=== PATIENT | female | born 1975 | race Caucasian/White ===

== ENCOUNTER 2021-03-07 11:02 | Outpatient (REF) | payer OTHER, SELFPAY ==
[2021-03-07 14:14] LABS: Basophils Percent Auto 0.4 % (0-2); Eosinophils Absolute Auto 0.1 X10*3/uL (0.0-0.4); Eosinophils Percent Auto 1.1 % (0-4); Hematocrit 38.8 % (37-47); Hemoglobin 12.7 g/dl (12.0-16.0); Imm Gran Abs Auto 0.02 X10*3/uL (0.00-0.03); Imm Gran Pct Auto 0.4 % (0.0-0.4); Lymphocytes Absolute Auto 0.7 X10*3/uL (1.2-4.9); Lymphocytes Percent Auto 13.1 % (20-40); MANUAL DIFF FLAG SCAN; Mean Corpuscular HGB Conc 32.7 g/dl (31.0-35.0); Mean Corpuscular Hemoglobin 32.9 pg (27.0-33.0); Mean Corpuscular Volume 100.5 fL (80-98); Monocytes Absolute Auto 0.9 X10*3/uL (0.1-1.2); Monocytes Percent Auto 17.5 % (2-11); Neutrophils Absolute Auto 3.5 X10*3/uL (2.0-8.3); Neutrophils Percent Auto 67.5 % (45-73); Platelet Count 269 X10*3/uL (160-400); Red Blood Count 3.86 X10*6/uL (4.20-5.50); Red Cell Distribution Width 12.3 % (11.0-16.0); SCAN SMEAR FLAG 1; White Blood Count 5.3 X10*3/uL (4.8-10.8)
[2021-03-07 14:32] LABS: Troponin-I High Sensitivity 10.4 ng/L (<3.5-17.0)
[2021-03-07 14:44] LABS: Alanine Aminotransferase 19 U/L (0-31); Albumin Level 4.5 g/dL (3.5-5.0); Alkaline Phosphatase 61 U/L (39-117); Anion Gap 17 (12-20); Aspartate Amino Transferase 23 U/L (5-31); Bilirubin Total 0.4 mg/dL (0.0-1.0); Blood Urea Nitrogen 8 mg/dL (9-16); C Reactive Protein 3.67 mg/dL (< or = 0.50); Calcium 9.9 mg/dL (8.4-10.2); Carbon Dioxide 25 mmol/L (22-29); Chloride 101 mmol/L (96-108); Cholesterol 205 mg/dL; D Dimer 392 NG/ML; Estimated Glomerular Filt Rate > 60; Glucose Fasting 100 mg/dL (60-99); HDL Cholesterol 70 mg/dL; LDL Cholesterol Calculated 109 mg/dl; Potassium 4.8 mmol/L (3.3-5.1); Sodium 138 mmol/L (135-145); Total Protein 7.7 g/dL (6.5-8.0); Triglycerides 132 mg/dL
[2021-03-07 14:48] LABS: SLIDE REVIEW VERIFIED
[2021-03-07 14:49] LABS: Thyroid Stimulating Hormone 3.63 uIU/mL (0.32-4.0); Vitamin B12 234 pg/mL (200-900)
== END 2021-03-07 11:03 | disposition home or self-care (01) ==
LOC: HO.10HDL 11:02
PROVIDERS: Visit Provider Internal Medicine
DX: Z00.00 Encounter for general adult medical examination without abnormal findings (principal); K62.5 Hemorrhage of anus and rectum
CPT/HCPCS: 36415; 80053; 80061; 82550; 82607; 84443; 84484; 85025; 85379; 86140

== ENCOUNTER 2021-03-07 16:10 | Emergency (ER) | payer OTHER, SELFPAY ==
--- NOTE | ~2021-03-07 | CT_ITS ---
EXAMINATION: CT ANGIOGRAM OF THE CHEST WITH AND WITHOUT CONTRAST (CT PULMONARY ANGIOGRAM FOR PE) CLINICAL INFORMATION: Reason for Exam Chest tightness with elevated D-dimer COMPARISON: None TECHNIQUE: Prior to contrast administration, noncontrast localization images were obtained. Subsequently, multidetector volumetric imaging was performed from the thoracic inlet to below the diaphragms following the administration of 80 mL Omnipaque 350 intravenous contrast. No contrast reaction reported Sagittal, coronal, and MIP oblique sagittal reformatted images were obtained on the CT workstation, uploaded to PACS, and reviewed. This CT examination was performed using dose optimization techniques as appropriate, variously including the following: *Automated exposure control *Adjustment of mA and/or kV according to patient size (this includes techniques or standardized protocols for targeted exams where dose is matched to indication/reason for exam; i.e. extremities or head) *Use of iterative reconstruction technique Total exam dose-length product 236 mGy-cm FINDINGS: QUALITY OF STUDY/CONTRAST BOLUS: Satisfactory. PULMONARY ARTERIES: No central or segmental pulmonary emboli. THORACIC AORTA: No aneurysm or dissection. LUNG: Atelectasis or scarring is present in the right lower lobe and to a lesser extent the left lower lobe. No focal consolidation, nodules or masses. PLEURA: No pleural effusion or pneumothorax. MEDIASTINUM: Normal heart size. No pericardial effusion. No hilar or mediastinal lymphadenopathy. No evidence of septal bowing or right heart strain. CHEST WALL/AXILLA: No axillary or internal mammary lymphadenopathy. OSSEOUS STRUCTURES: No acute or suspicious osseous abnormality. 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 No reflux of contrast into the hepatic veins to suggest elevated right heart pressures. CT/CT angio chest PE protocol IMPRESSION: No evidence of pulmonary emboli A cause for the patient's chest tightness has not been found VTE: negative
--- NOTE | ~2021-03-07 | US_ITS ---
EXAMINATION: US VENOUS ULTRASOUND WITH DOPPLER LOWER EXTREMITY, BILATERAL CLINICAL INFORMATION: Pain. COMPARISON: None TECHNIQUE: Ultrasound of the deep veins is performed from the hip to the calf with compression sonography and color and pulse Doppler assessment. Spectral analysis with color-flow imaging is performed. FINDINGS: RIGHT: There is normal venous compression and respiratory variation and augmented flow. The visualized common femoral vein, superficial femoral vein, profunda femoral vein, popliteal vein, and the trifurcation region shows no evidence of deep venous thrombosis. There is no significant popliteal fossa cyst. LEFT: There is normal venous compression and respiratory variation and augmented flow. The visualized common femoral vein, superficial femoral vein, profunda femoral vein, popliteal vein, and the trifurcation region shows no evidence of deep venous thrombosis. There is no significant popliteal fossa cyst. If the patient's symptoms persist, followup ultrasound in 5 days 7 days might be of value to exclude proximal propagation from a non-visualized calf vein. US/US venous duplex LE BI IMPRESSION: No DVT demonstrated in the bilateral lower extremity.
[2021-03-07 16:28] VITALS: BP 146/79; PULSE 90; RESP 20; TEMP 37.1; O2SAT 100; BMI 23.1
[2021-03-07 17:46] LABS: Urine Pregnancy NEGATIVE (NEGATIVE)
[2021-03-07 17:47] LABS: UPreg QC Valid YES
--- NOTE | 2021-03-07 20:45 | ED_ITS ---
HPI - Chest Pain General Chief Complaint: Recheck/Abnormal Lab/Rx Stated Complaint: abnormal labs Time Seen by Provider: 03/07/21 20:39 Source: patient Mode of arrival: ambulatory Limitations: no limitations History of Present Illness HPI narrative: Patient complaining of chest pain tightness for last 4 days also complaining of upper back pain. Patient received her mother in a COVID-19 vaccine 2nd shot on 02/24. Seen her PCP today who did a D-dimer which was slightly elevated and CRP is slightly elevated sent the patient here to rule out PE otherwise patient has no risk for PE not on any control pills nonsmoker no family history of hypercoagulable state patient pretty active otherwise PE. Patient denies any shortness of breath no cough no no fever no chills . complaint: chest heaviness Related Data Previous Rx's Medication Instructions Recorded ibuprofen 600 mg PO Q6H PRN #20 tab 03/07/21 Allergies Allergy/AdvReac Type Severity Reaction Status Date / Time No Known Allergies Allergy Verified 03/07/21 16:33 Review of Systems Review of Systems: Constitutional : No Weight loss, No Fever, No Chills ENT/Mouth : No sore throat, No Rhinorrhea Eyes: No Eye Pain, No Swelling Cardiovascular : + Chest Pain, no palpitations Respiratory : No Cough, No Sputum, no shortness of breath Gastrointestinal : no Nausea, No Vomiting, No Diarrhea, No abdominal Pain, no black stools Genitourinary : No Dysuria, No Urinary Frequency Musculoskeletal : No joint pain, No Myalgias, No Joint Swelling Skin : No Skin Lesions, No rash Neuro : No Weakness, No Numbness, No Dizziness, No Headache Psych : No Anxiety/Panic, No Depression Heme/Lymph: No Bruising, No Lymphadenopathy Endocrine : No Polyuria, No Polydipsia All other systems reviewed and are negative [facility] Past Medical History Medical History Acne Social History Social History Advance Directives: No Advance Directives Information Provided: Yes Physical Exam Vital Signs: Vital Signs: Last Vital Signs Temp 98.7 F 03/07/21 16:28 Pulse 89 03/07/21 21:05 Resp 20 03/07/21 21:05 BP 133/83 03/07/21 21:05 Pulse Ox 99 03/07/21 21:05 Body Mass Index 23.1 Appearance: Alert. Oriented X3. No acute distress. Eyes: PERRLA, No Nystagmus ENT: Pharynx normal. Oral Mucosa moist Neck: Normal inspection. Neck supple. Diffuse muscular tenderness upper back no spinal tenderness CVS: Normal heart rate and rhythm. Pulses normal. Respiratory: No respiratory distress. Equal air entry bilateral, no wheezing/rales/rhonchi no chest wall tenderness Abdomen: Soft and nontender. Bowel sounds are present, no mass palpable, no CVA tenderness Skin: Skin warm and dry. Normal skin color. Normal skin turgor. Extremities: No lower extremity edema. No calf tenderness Neuro: Oriented X 3. No motor deficit. No sensory deficit.No cerebellar signs , cranial nerves II-XII intact MDM - Chest Pain MDM Narrative Medical decision making narrative: Patient has atypical chest pain two sets of high sensitive troponin negative for any delta change, D-dimer was 392 CTA chest was done which is negative for PE venous Doppler for the legs done which was also negative for DVT Medical Records Data Attestation: I reviewed the patient's medical records. Lab Data Attestation: I reviewed the patient's lab results. Labs: Lab Results 03/07/21 03/07/21 Range/Units 17:33 21:12 Troponin I High Sens 4.6 D (<3.5-17.0) ng/L Urine Test NEGATIVE (NEGATIVE) ECG Data ECG #1: Attestation: I personally reviewed and interpreted this ECG as follows: Interpretation: Normal sinus rhythm heart rate 84 normal axis no acute ST T wave changes no acute ischemia Discharge Plan Discharge Clinical Impression: Chest pain Qualifiers: Chest pain type: chest pain on breathing Qualified Code(s): R07.1 - Chest pain on breathing Patient Disposition: Home, Self-Care Instructions: Chest Pain (ED) Additional Instructions: The chest pain is likely noncardiac not lung related likely muscular. Take ibuprofen 600 mg 1 tablet every 6 hours as needed for the pain Follow-up with your PCP for further evaluation if chest pain continues Prescriptions: New ibuprofen 600 mg tablet 600 mg PO Q6H PRN (Reason: pain) Qty: 20 RF: 0
--- NOTE | 2021-03-07 20:45 | ECG_ITS ---
Test Reason : SOB Blood Pressure : / mmHG Vent. Rate : 084 BPM Atrial Rate : 084 BPM P-R Int : 166 ms QRS Dur : 086 ms QT Int : 412 ms P-R-T Axes : 066 022 021 degrees QTc Int : 486 ms Normal sinus rhythm Nonspecific T wave abnormality Prolonged QT Abnormal ECG No previous ECGs available Referred By: Santiago Madrigal Electronically Signed By:GRACIELA DE DIOS MD
[2021-03-07 21:05] VITALS: BP 133/83; PULSE 89; RESP 20; O2SAT 99
[2021-03-07 21:59] LABS: Troponin-I High Sensitivity 4.6 ng/L (<3.5-17.0)
[2021-03-07] MEDS: iohexoL 350 MG/ML 100 ML INFUS..BTL IV (21:59)
[2021-03-07] MEDS: Ketorolac Tromethamine 30 MG/ML VIAL IVPUSH (23:38)
[2021-03-07 23:50] VITALS: BP 137/87; PULSE 93; RESP 16; O2SAT 98
== END 2021-03-07 23:53 | disposition home or self-care (01) ==
PROVIDERS: Emergency Provider Internal Medicine; PCP Internal Medicine
DX: R07.1 Chest pain on breathing (principal)
CPT/HCPCS: 36415; 71275; 81025; 84484; 93005; 93970; 96374; 99284; 99285; J1885; Q9967

== ENCOUNTER 2021-08-17 12:00 | Outpatient (REF) | payer OTHER, SELFPAY ==
[2021-08-17 13:36] LABS: MANUAL DIFF FLAG NO
[2021-08-17 13:43] LABS: Basophils Percent Auto 0.6 % (0-2); Eosinophils Percent Auto 0.6 % (0-4); Hematocrit 34.3 % (37-47); Hemoglobin 11.6 g/dl (12.0-16.0); Imm Gran Abs Auto 0.01 X10*3/uL (0.00-0.03); Imm Gran Pct Auto 0.2 % (0.0-0.4); Lymphocytes Absolute Auto 1.4 X10*3/uL (1.2-4.9); Lymphocytes Percent Auto 29.1 % (20-40); Mean Corpuscular HGB Conc 33.8 g/dl (31.0-35.0); Mean Corpuscular Hemoglobin 33.6 pg (27.0-33.0); Mean Corpuscular Volume 99.4 fL (80-98); Monocytes Absolute Auto 0.6 X10*3/uL (0.1-1.2); Monocytes Percent Auto 13.6 % (2-11); Neutrophils Absolute Auto 2.6 X10*3/uL (2.0-8.3); Neutrophils Percent Auto 55.9 % (45-73); Platelet Count 265 X10*3/uL (160-400); Red Blood Count 3.45 X10*6/uL (4.20-5.50); Red Cell Distribution Width 12.1 % (11.0-16.0); White Blood Count 4.7 X10*3/uL (4.8-10.8)
[2021-08-17 14:06] LABS: C Reactive Protein 0.11 mg/dL (< or = 0.50)
[2021-08-17 14:18] LABS: IDNOW Serial# 9DD0AD1C; Strep A Nucleic Acid Negative (Negative)
[2021-08-17 14:34] LABS: Free T4 (Free Thyroxine) 0.81 ng/dL (0.71-1.85); Thyroid Stimulating Hormone 1.22 uIU/mL (0.32-4.0)
[2021-08-17 15:02] LABS: Vitamin B12 368 pg/mL (200-900)
== END 2021-08-17 12:01 | disposition home or self-care (01) ==
LOC: HO.10HDL 12:00
PROVIDERS: Visit Provider Internal Medicine
DX: E53.8 Deficiency of other specified B group vitamins (principal); M54.9 Dorsalgia, unspecified; R94.6 Abnormal results of thyroid function studies; Z20.89 Contact with and (suspected) exposure to other communicable diseases
CPT/HCPCS: 36415; 82607; 84439; 84443; 85025; 86140; 87071; 87651

== ENCOUNTER 2025-01-08 06:38 | Day surgery (SDC) | payer OTHER, SELFPAY ==
[2025-01-06 13:52] VITALS: BMI 25.4
[2025-01-08 06:50] VITALS: BMI 23.8
[2025-01-08 06:59] VITALS: BP 140/83; PULSE 63; RESP 16; TEMP 36.1; O2SAT 100
[2025-01-08] MEDS: Lactated Ringers 1,000 ML 80 ML IVCONT (07:15)
--- NOTE | 2025-01-08 07:16 | P.CONAN_ITS ---
HPI - Anesthesia Eval Consult details Narrative: for colonoscopy [facility] Past Medical History Medical History (Updated 03/08/21 @ 00:01 by Valdemar Clemente) Acne Family History Family history of problems with anesthesia: No Surgical History Surgical History (Updated 01/08/25 @ 06:48 by Alexa Jean RN) History of facial surgery [place] teeth extracted History of Problems with Anesthesia: No Social History Social History Are you a primary mall plant caretaker to a significant other at home: No Do you presently have visiting nurse or other home services: No Patient Tobacco Use Status: Former Tobacco user Tobacco use type: Cigarette Smoked in Last 30 Days: No Use of substances other than those prescribed or required for medical reasons: Yes Substance Use Frequency: Monthly Have you been hit, kicked, punched, or otherwise hurt by someone within the past year? If so, by whom?: No Are you DNR?: No Advance Directives: No Advance Directives Information Provided: No Advance Directives on File: No Recently lost weight without trying: No How much weight loss: Not applicable Eating poorly because of decreased appetite: No Nutrition screen score: 0 Nutrition Risks: No Nutritional Risk Patient : No : No Poor oral hygiene: No Meds Allergies Allergy/AdvReac Type Severity Reaction Status Date / Time No Known Allergies Allergy Verified 01/08/25 06:48 Active Medications: Current Medications Lactated Ringer's (Lr) 1,000 mls @ 80 mls/hr IVCONT .[id number] ANNE-MARIE Last Admin: 01/08/25 07:15 Dose: 80 mls/hr Sodium Biphosphate/Sodium Phosphate (Sodium Phosphate,[place]-Dibasic 133 Ml Enema) 133 ml ME ONCE PRN PRN Reason: Poor Colonoscopy Prep Results Home Medications ?Medication ?Instructions ?Recorded ?Confirmed ?Last Taken ?Type citalopram 10 mg tablet 10 mg PO DAILY 01/06/25 01/08/25 Unknown History fluticasone propionate 50 1 spray intranasal BID PRN Allergy 01/06/25 01/08/25 Unknown History mcg/actuation nasal Symptoms spray,suspension Exam Height,Weight and Vital Signs: Height 5 ft 6 in Weight 67 kg Last Vital Signs Temp 97.0 F 01/08/25 06:59 Pulse 63 01/08/25 06:59 Resp 16 01/08/25 06:59 BP 140/83 H 01/08/25 06:59 Pulse Ox 100 01/08/25 06:59 O2 Del Method Room Air 01/08/25 06:59 Airway Mallampati Class: I TM Dist: >3cm Neck ROM: Full Loose/Missing/Broken Teeth: No Heart: ok Lungs: ok Assessment and Plan Assessment Anesthesia Assessment: Anesthesia Plan Discussed and Chart Reviewed Final Anesthetic Review Family History of Problems with Anesthesia: No History of Problems with Anesthesia: No NPO: Yes ASA Class: I Final Preanesthetic Review: No Changes in Pt Med Stat, Meds/Allgs Chart Reviewed, Consent Obtained/Reviewed and Anes Risks/Benef Reviewed Patient Risk: Low Procedure Risk: Low Anesthetic Plan Anesthetic Plan: MAC: and Agree w/ Assess. and Plan Disposition: Standard PACU
[2025-01-08 08:30] VITALS: BP 120/67; PULSE 68; RESP 16; TEMP 36.3; O2SAT 99
--- NOTE | 2025-01-08 08:32 | PM.OP ---
Brief Operative Note Date of Service: 01/08/25 Pre-op diagnosis: Screening Post-op diagnosis: other (Diverticulosis) Procedure: Colonoscopy to the cecum and TI Surgeon: Jakob Caba MD Anesthesia: MAC Was an Practical Nursing Instructor used for this Procedure?: No Estimated blood loss (mL): 0 Pathology: none sent Condition: stable Disposition: PACU
[2025-01-08 08:45] VITALS: BP 124/65; PULSE 51; RESP 16; TEMP 36.3; O2SAT 99
--- NOTE | 2025-01-08 09:08 | OP_ITS ---
DATE OF SERVICE: 01/08/2025 SURGEON: Jakob Caba MD INDICATIONS: The patient presents for evaluation of colorectal cancer screening. Full consent has been obtained from her for this, including risks of bleeding and perforation. PREOPERATIVE DIAGNOSIS: Colorectal cancer screening. POSTOPERATIVE DIAGNOSIS: PROCEDURE PERFORMED: Colonoscopy to the cecum and terminal ileum. ESTIMATED BLOOD LOSS: COMPLICATIONS: ANESTHESIA: Monitored anesthesia care. ASSISTANTS: SPECIMENS: POSTOPERATIVE DIAGNOSES: Colorectal cancer screening, sigmoid diverticulosis, and small internal hemorrhoids. DESCRIPTION OF PROCEDURE: Patient was placed in the left lateral decubitus position. The digital rectal exam revealed no abnormalities. The Olympus video pediatric colonoscope was entered into the rectum and advanced easily to the cecum. Once in the cecum, I did identify normal-appearing cecal pouch with appendiceal orifice and a normal-appearing ileocecal valve. The terminal ileum was cannulated and appeared normal. The scope was withdrawn back in the colon. The entire cecum and ileocecal valve appeared normal. The scope was slowly withdrawn assessing all mucosal surfaces carefully. Preparation was excellent. I did not visualize any sign of polyps, colitis, nor angiodysplasia. There was a moderate amount of sigmoid diverticulosis. In the rectum, scope was retroflexed visualizing small internal hemorrhoids, but no other pathology. The rectal mucosa appeared normal. Scope was straightened and withdrawn from the patient. She tolerated the procedure well and was returned to the recovery area in stable condition. IMPRESSION: 1. Sigmoid diverticulosis. 2. Internal hemorrhoids. PLAN: Given today's negative exam and negative family history, I would recommend a repeat colonoscopy in 10 years for screening. She will otherwise see me on a p.r.n. basis. MD KATIE Thompson/DAO / [phone]
== END 2025-01-08 09:16 | disposition home or self-care (01) ==
PROVIDERS: PCP Internal Medicine; Visit Provider Internal Medicine
PROC: 0DJD8ZZ Inspection of Lower Intestinal Tract, Via Natural or Artificial Opening Endoscopic (ICD-10-PCS; CPT 45378; principal; 2025-01-08 07:30)
DX: Z12.11 Encounter for screening for malignant neoplasm of colon (principal); K57.30 Diverticulosis of large intestine without perforation or abscess without bleeding; K64.8 Other hemorrhoids; Z87.891 Personal history of nicotine dependence
CPT/HCPCS: 45378; J2003; J2704; J3010